=== PATIENT | female | born 1970 | race Native Hawaiian/Other Pacific Islander ===

== ENCOUNTER 2016-12-14 10:41 | Outpatient (CLI) | payer OTHER | END 2016-12-14 19:33 | disposition home or self-care (01) | LOC: MAMMO 10:41 | DX: N64.89 Other specified disorders of breast (principal) | CPT/HCPCS: G0206-TC ==

== ENCOUNTER 2017-06-27 10:34 | Outpatient (CLI) | payer OTHER | END 2017-06-27 19:07 | disposition home or self-care (01) | LOC: MAMMO 10:34 | DX: R92.8 Other abnormal and inconclusive findings on diagnostic imaging of breast (principal); Z12.31 Encounter for screening mammogram for malignant neoplasm of breast ==

== ENCOUNTER 2017-10-06 11:02 | Outpatient (CLI) | payer OTHER | END 2017-10-06 22:26 | disposition home or self-care (01) | LOC: US 11:02 | DX: R92.8 Other abnormal and inconclusive findings on diagnostic imaging of breast (principal) ==